=== PATIENT | female | born 1945 | race Two or more races ===

== ENCOUNTER 2016-11-17 07:14 | Emergency (ER) | payer OTHER ==
[~2016-11-17] VITALS: Ht 167.6 cm; Wt 99.8 kg
[2016-11-17 07:31] VITALS: BP 136/80
--- NOTE | 2016-11-17 07:32 | RAD ---
Left hand, 3 views, 11/17/2016: History: Pain and swelling There is patchy bony demineralization. No acute fracture or destructive bony lesion is seen. There are mild scattered degenerative changes. There is mild soft tissue swelling. IMPRESSION: 1. Demineralization. 2. No acute bony abnormality is detected.
[2016-11-17] MEDS ORDERED: DICL100G7 TP (07:52)
[2016-11-17] MEDS ORDERED: METH4TAB2 PO (07:52)
[2016-11-17] MEDS ORDERED: NAPR220C4 PO (07:52)
--- NOTE | 2016-11-17 07:53 | PHYS DOC ---
Past Medical History Past Medical History: Hypertension Additional Past Medical Histor: tendonitis Past Surgical History: Cholecystectomy, Hysterectomy Alcohol Use: None Adult General Chief Complaint Chief Complaint: HAND PROBLEM HPI HPI Patient is a 71 year old female with history of hypertension who presents today with mild left hand pain and swelling most of it along the thumb that began yesterday. Patient denies any known injury. She states she believes she has some arthritis in her left hand. Review of Systems Review of Systems Constitutional: Denies fever or chills [] Eyes: Denies change in visual acuity, redness, or eye pain [] Musculoskeletal: Left hand pain and swelling. Integument: Denies rash or skin lesions [] Neurologic: Denies headache, focal weakness or sensory changes [] Endocrine: Denies polyuria or polydipsia [] Allergies Allergies Allergies Coded Allergies Type Severity Reaction Last Updated Verified No Known Drug Allergies 11/17/16 No Physical Exam Physical Exam Constitutional: Well developed, well nourished, no acute distress, non-toxic appearance. [] HENT: Normocephalic, atraumatic, bilateral external ears normal, oropharynx moist, no oral exudates, nose normal. [] Skin: Warm, dry, no erythema, no rash. [] Back: No tenderness, no CVA tenderness. [] Extremities: Left hand with a small amount of soft tissue swelling in this patient and all the thumb. Diffuse tenderness on palpation along the left thumb. Full range of motion to the left hand and fingers. +2 left radial pulse. Adequate radial medial and ulnar sensation to the left fingers. Cap refill less than 2 seconds and left fingers. Neurologic: Alert and oriented X 3, normal motor function, normal sensory function, no focal deficits noted. [] Psychologic: Affect normal, judgement normal, mood normal. [] Current Patient Data Vital Signs Vital Signs Date Time Temp Pulse Resp B/P Pulse Ox O2 Delivery O2 Flow Rate FiO2 11/17/16 07:31 97.9 65 20 100 Room Air 97.9 EKG EKG [] Radiology/Procedures Radiology/Procedures []PROCEDURE: HAND LEFT 3V Left hand, 3 views, 11/17/2016: History: Pain and swelling There is patchy bony demineralization. No acute fracture or destructive bony lesion is seen. There are mild scattered degenerative changes. There is mild soft tissue swelling. IMPRESSION: 1. Demineralization. 2. No acute bony abnormality is detected. DICTATED and SIGNED BY: EBONI VARGHESE MD DATE: 11/17/16727 CC: RERE RAMIREZ APRN ~ Course & Med Decision Making Course & Med Decision Making Pertinent Labs and Imaging studies reviewed. (See chart for details) Patient is in the ED with complaints of left hand pain with suspicion for arthritis that began yesterday. Left hand x-rays interpreted by radiologist are noted for demineralization otherwise no acute findings. Micah wrap was applied to the left hand by the ED RN, neurovascular exam done by me post-Micah wrap application is normal. Patient was discharged with instructions to take low dose of Aleve as needed for pain, Medrol Dosepak and a Voltaren cream. Discharged with instructions to follow-up with orthopedic doctor provided on Wednesday. She was also given a prescription for Medrol Dosepak. She was provided return precautions and discharged in stable condition. Dragon Disclaimer Dragon Disclaimer This electronic medical record was generated, in whole or in part, using a voice recognition dictation system. Departure Departure Impression: Primary Impression: Degenerative joint disease of left hand Disposition: HOME, SELF-CARE Condition: STABLE Referrals: SUYAPA MENDIOLA MD SEE HER IN ONE WEEK Patient Instructions: Arthritis, Degenerative-Brief Additional Instructions: You were seen for arthritis of the left hand. Please ice and elevate the extremity. Take the prescribed medicines as ordered. Come back to the emergency room if symptoms worsen. Scripts Diclofenac Sodium (Voltaren)100 Gm Gel..gram.1 Gm TP QID #100 GM Ref 2 Prov:RERE RAMIREZ APRN 11/17/16 Naproxen Sodium (Aleve)220 Mg [id number] Mg PO BID #14 CAP Prov:RERE RAMIREZ APRN 11/17/16 Methylprednisolone (Medrol)4 Mg Tab.ds.pk1 Pkg PO UD #1 PKG Prov:MARTITAChrsitelleRERE APRN 11/17/16 Problem Qualifiers Primary Impression: Degenerative joint disease of left hand Osteoarthritis type: primary Qualified Code: M19.042 - Primary osteoarthritis, left hand MARLAMATEUSRERE REDD Nov 17, 2016 07:52
== END 2016-11-17 08:02 | disposition home or self-care (01) ==
LOC: ER 07:14
DX: M19.042 Primary osteoarthritis, left hand (principal); I10 Essential (primary) hypertension
CPT/HCPCS: 73130; 99284